=== PATIENT | female | born 1935 | race Caucasian/White ===

== ENCOUNTER 2018-03-16 08:59 | Inpatient (IN) | payer OTHER, MEDICAID, MEDICARE ==
[2018-03-16] VITALS (14 sets, daily range): BP systolic 133–176; BP diastolic 63–91; PULSE 85–108; RESP 15–38; TEMP 97.8–98.3; O2SAT 78–99
[~2018-03-16] VITALS: Ht 154.9 cm; Wt 85.2 kg
[2018-03-16] MEDS ORDERED: METF1000 PO (09:07)
[2018-03-16] MEDS ORDERED: NOVOLOGP2 SQ (09:11)
[2018-03-16] MEDS ORDERED: LEVEMIR SQ (09:11)
[2018-03-16] MEDS: RESP: ALBUTEROL 2.5 MG/IPRATROPIUM 0.5 MG NEB (SCH) INH ×2 (09:15→09:17)
[2018-03-16] MEDS ORDERED: methylPREDNISolone SOD SUCC 125 MG/2 ML VIAL IV PUSH ONE (09:15)
--- NOTE | 2018-03-16 09:20 | PD ---
HPI Chief Complaint: Respiratory Distress Time Seen by Provider: 09:06 Travel History International Travel<30 days: No Contact w/Intl Traveler<30days: No Traveled to known affect area: No History of Present Illness HPI 82yo F with PMH of COPD not on home O2 presents to the ED with c/o sob and cough since yesterday. Said she is a heavy cig smoker and smoke a pack a day. Denies any fever, chest pain, sob, n/v, abdominal pain, focal weakness or numbness. Pt is from [place] and visiting her friend. PFSH Past Medical History Diabetes: Yes Respiratory: Yes Social History Tobacco Use: Yes Allergies-Medications (Allergen,Severity, Reaction): Coded Allergies: Penicillins (Verified Allergy, Unknown, RASH, 03/16/18) Sulfa (Sulfonamide Antibiotics) (Verified Allergy, Unknown, HIVES, 03/16/18 ) Reported Meds & Prescriptions Reported Meds & Active Scripts Active Reported Novolog Inj (Insulin Aspart) 1,000 Unit/10 Ml Vial 3 Units SQ BID Levemir Inj (Insulin Detemir) 1,000 unit/ 10 ML Vial 30 Units SQ BID Do not mix with any other Insulin. Metformin (Metformin HCl) 1,000 Mg Tab 1,000 Mg PO BIDPC Review of Systems Except as stated in HPI: all other systems reviewed are Neg Physical Exam Narrative GENERAL: 82yo F in moderate distress. SKIN: Focused skin assessment warm/dry. HEAD: Atraumatic. Normocephalic. EYES: Pupils equal and round. No scleral icterus. No injection or drainage. ENT: No nasal bleeding or discharge. Mucous membranes pink and moist. NECK: Trachea midline. No JVD. CARDIOVASCULAR: Regular rate and rhythm. No murmur appreciated. RESPIRATORY: + accessory muscle use. Expiratory wheezing diffusely. GASTROINTESTINAL: Abdomen soft, non-tender, nondistended. Hepatic and splenic margins not palpable. MUSCULOSKELETAL: No obvious deformities. No clubbing. No cyanosis. No edema. NEUROLOGICAL: Awake and alert. No obvious cranial nerve deficits. Motor grossly within normal limits. Normal speech. PSYCHIATRIC: Appropriate mood and affect; insight and judgment normal. Data Data Last Documented VS Vital Signs Date Time Temp Pulse Resp B/P (MAP) Pulse Ox O2 Delivery O2 Flow Rate FiO2 03/16/18 10:06 97.8 101 30 150/67 (94) 97 Nasal Cannula 4.00 Orders Orders Complete Blood Count With Diff (03/16/18 09:06) Basic Metabolic Panel (Bmp) (03/16/18 09:06) B-Type Natriuretic Peptide (03/16/18 09:06) Act Partial Throm Time (Ptt) (03/16/18 09:06) Prothrombin Time / Inr (Pt) (03/16/18 09:06) Magnesium (Mg) (03/16/18 09:06) Troponin I (03/16/18 09:06) Influenzae A/B Antigen (03/16/18 09:06) Blood Culture (03/16/18 09:06) Electrocardiogram (03/16/18 09:06) Chest, Single Ap (03/16/18 09:06) Methylprednisolone So Succ Inj (Solumedr (03/16/18 09:15) Albuterol-Ipratropium Neb (Duoneb Neb) (03/16/18 09:15) Lactic Acid Sepsis Protocol (03/16/18 09:08) Arterial Blood Gas (Abg) (03/16/18 ) Admit To Inpatient (03/16/18 ) Vital Signs (Adult) Q4H (03/16/18 11:12) Activity Oob With Assistance (03/16/18 11:12) Diet Heart Healthy (03/16/18 Lunch) Sodium Chloride 0.9% Flush (Ns Flush) (03/16/18 11:15) Sodium Chloride 0.9% Flush (Ns Flush) (03/16/18 21:00) Acetaminophen (Tylenol) (03/16/18 11:15) Ondansetron Inj (Zofran Inj) (03/16/18 11:15) Comprehensive Metabolic Panel (03/17/18 06:00) Complete Blood Count With Diff (03/17/18 06:00) Resp Oxygen Major C Titrat 1-4 L (03/16/18 ) Pt Request For Service (03/16/18 11:12) Case Management Consult (03/16/18 11:12) Enoxaparin Inj (Lovenox Inj) (03/16/18 12:00) Scd Bilateral/Knee High KAYLEE.BID (03/16/18 11:12) Steve Bilateral/Knee High KAYLEE.QSHIFT (03/16/18 11:12) Naloxone Inj (Narcan Inj) (03/16/18 11:15) Docusate Sodium-Senna (Samantha-Colace) (03/16/18 21:00) Magnesium Hydroxide Liq (Milk Of Magnesi (03/16/18 11:15) Sennosides (Senokot) (03/16/18 11:15) Bisacodyl Supp (Dulcolax Supp) (03/16/18 11:15) Lactulose Liq (Lactulose Liq) (03/16/18 11:15) Inpatient Certification (03/16/18 ) Albuterol-Ipratropium Neb (Duoneb Neb) (03/16/18 12:00) Albuterol-Ipratropium Neb (Duoneb Neb) (03/16/18 11:15) Methylprednisolone So Succ Inj (Solumedr (03/16/18 15:00) Bedside Glucose KAYLEE.CSUGAR (03/16/18 11:17) Blood Glucose Goal (Criteria) (03/16/18 11:17) Hypoglycemia 70 Mg/Dl Or < (03/16/18 11:17) Notify Dr: Other (03/16/18 11:17) Dextrose 50% In [place] (Vial) Inj (D50w (Vi (03/16/18 11:30) Glucagon Inj (Glucagon Inj) (03/16/18 11:30) Consult Break Off Worker (03/16/18 ) Insulin Human Reg Supp Scale (Novolin R (03/16/18 12:00) Insulin Detemir Inj (Levemir Inj) (03/16/18 21:00) Admit Order (Ed Use Only) (03/16/18 11:19) Labs Laboratory Tests Test 03/16/18 09:02 03/16/18 10:27 White Blood Count 5.9 TH/MM3 Red Blood Count 4.82 MIL/MM3 Hemoglobin 13.7 GM/DL Hematocrit 42.2 % Mean Corpuscular Volume 87.4 FL Mean Corpuscular Hemoglobin 28.5 PG Mean Corpuscular Hemoglobin Concent 32.6 % Red Cell Distribution Width 15.5 % Platelet Count 155 TH/MM3 Mean Platelet Volume 8.4 FL Neutrophils (%) (Auto) 70.9 % Lymphocytes (%) (Auto) 16.7 % Monocytes (%) (Auto) 11.6 % Eosinophils (%) (Auto) 0.4 % Basophils (%) (Auto) 0.4 % Neutrophils # (Auto) 4.2 TH/MM3 Lymphocytes # (Auto) 1.0 TH/MM3 Monocytes # (Auto) 0.7 TH/MM3 Eosinophils # (Auto) 0.0 TH/MM3 Basophils # (Auto) 0.0 TH/MM3 CBC Comment DIFF FINAL Differential Comment Prothrombin Time 11.7 SEC Prothromb Time International Ratio 1.2 RATIO Activated Partial Thromboplast Time 23.8 SEC Blood Urea Nitrogen 21 MG/DL Creatinine 0.83 MG/DL Random Glucose 191 MG/DL Calcium Level 8.9 MG/DL Magnesium Level 1.7 MG/DL Sodium Level 140 MEQ/L Potassium Level 4.6 MEQ/L Chloride Level 104 MEQ/L Carbon Dioxide Level 29.5 MEQ/L Anion Gap 7 MEQ/L Estimat Glomerular Filtration Rate 66 ML/MIN Lactic Acid Level 1.8 mmol/L Troponin I LESS THAN 0.02 NG/ML Blood Gas Puncture Site LT RADIAL Blood Gas Patient Temperature 98.6 Blood Gas HCO3 28 mmol/L Blood Gas Base Excess 2.5 mmol/L Blood Gas Oxygen Saturation 90 % Arterial Blood pH 7.33 Arterial Blood Partial Pressure CO2 54 mmHg Arterial Blood Partial Pressure O2 70 mmHG Arterial Blood Oxygen Content 16.2 Vol % Arterial Blood Carboxyhemoglobin 1.5 % Arterial Blood Methemoglobin 0.9 % Blood Gas Hemoglobin 12.8 G/DL Oxygen Delivery Device NASAL CANNULA Blood Gas Liter Flow 2 L/M MDM Medical Decision Making Medical Screen Exam Complete: Yes Emergency Medical Condition: Yes Interpretation(s) EKG: Sinus tachycardia at 105bpm. Normal axis. No ST segment elevation or depression. Differential Diagnosis COPD exacerbation vs. pneumonia vs. ACS Narrative Course 82yo F with COPD here with sob since yesterday. Pt is tachypneic and hypoxic on arrival. O2 sat is 79% on RA and place on oxygen immediately. Oxygen improved to mid 80s on 2L NC and mid 90s on 4L NC. Labs reviewed, no leukocytosis. Lactic acid normal at 1.8. Troponin negative. ABG on 2L showed pO2 70 with O2 sat 90%. pCO2 is 54, likely chronic. pH of 7.33. Pt reevaluated after duonebs x3 and methylprednisolone and is feeling much better. Influenza negative. CXR negative. Pt's oxygen is at 90% on 2L so respiratory therapy place it back on 4L. Pt said she feels much better but is still wheezing and mildly tachypneic. At this time, do not think she needs BIPAP but she may if she remains tachypneic. Discussed with Dr. Carmona and accepted to her service. Critical Care Narrative Aggregate critical care time was 40 minutes. Time to perform other separately billable procedures was not included in the critical care time. My time did not include minutes spent treating any other patients simultaneously or on activities that did not directly contribute to the patient's treatment. The services I provided to this patient were to treat and/or prevent clinically significant deterioration that could result in: respiratory distress or . I provided critical care services requiring my management, as noted below: Chart data review, documentation time, medication orders and management, vital sign assessments/reviewing monitor data, ordering and reviewing lab tests, ordering and interpreting/reviewing x-rays and diagnostic studies, care of the patient and discussion of the patient with the admitting physicians. Diagnosis Primary Impression: COPD exacerbation Admitting Information Admitting Physician Requests: Galina Zaragoza DO Mar 16, 2018 09:20
[2018-03-16 09:48] LABS: AUTOMATED NEUTROPHIL # 4.2 TH/MM3 (1.8-7.7); BASOPHIL % 0.4 % (0.0-2.0); EOSINOPHIL % 0.4 % (0.0-4.0); HEMATOCRIT 42.2 % (35.0-46.0); HEMOGLOBIN 13.7 GM/DL (11.6-15.3); LYMPH % 16.7 % (9.0-44.0); MEAN CELL VOLUME 87.4 FL (80.0-100.0); MEAN CORPUSCULAR HEMOGLOBIN 28.5 PG (27.0-34.0); MEAN CORPUSCULAR HGB CONC 32.6 % (32.0-36.0); MEAN PLATELET VOLUME 8.4 FL (7.0-11.0); MONO % 11.6 % (0.0-8.0); MONOCYTE # 0.7 TH/MM3 (0-0.9); NEUT % 70.9 % (16.0-70.0); PLATELET COUNT 155 TH/MM3 (150-450); RED BLOOD COUNT 4.82 MIL/MM3 (4.00-5.30); RED CELL DISTRIBUTION WIDTH 15.5 % (11.6-17.2); WHITE BLOOD COUNT 5.9 TH/MM3 (4.0-11.0)
--- NOTE | 2018-03-16 09:51 | RADRPT ---
EXAM DATE/TIME: 03/16/2018 09:34 [facility] COMPARISON: No previous studies available for comparison. INDICATIONS : Shortness of breath. MEDICAL HISTORY : Emphysema. Carcinoma, breast. Diabetes. SURGICAL HISTORY : Right lumpectomy. ENCOUNTER: Initial ACUITY: 1 day PAIN SCORE: 0/10 LOCATION: Bilateral chest FINDINGS: A single view of the chest demonstrates the lungs to be symmetrically aerated without evidence of mas s, infiltrate or effusion. The cardiomediastinal contours are unremarkable. A mild to moderate scoli osis is noted with degenerative changes in the lower thoracic and upper lumbar spine. There are multi ple overlying electrocardiogram leads. Oxygen tubing is present as well. CONCLUSION: No acute disease. Jair Garcia MD on March 16, 2018 at 9:48 Board Certified Radiologist. This report was verified electronically.
[2018-03-16 10:05] LABS: TROPONIN I LESS THAN 0.02 NG/ML (0.02-0.05)
[2018-03-16 10:10] LABS: BICARBONATE 29.5 MEQ/L (21.0-32.0); BLOOD UREA NITROGEN 21 MG/DL (7-18); CALCIUM 8.9 MG/DL (8.5-10.1); CHLORIDE 104 MEQ/L (98-107); CREATININE 0.83 MG/DL (0.50-1.00); GLOMERULAR FILTRATION RATE 66 ML/MIN (>89); GLUCOSE,RANDOM 191 MG/DL (74-106); MAGNESIUM 1.7 MG/DL (1.5-2.5); SODIUM (NA) 140 MEQ/L (136-145)
[2018-03-16 10:19] LABS: INTERNATIONAL NORMALIZED RATIO 1.2 RATIO; PROTHROMBIN TIME - PATIENT 11.7 SEC (9.8-11.6)
--- NOTE | 2018-03-16 11:14 | HHI.HP ---
HPI Service [facility] Primary Care Physician Non-Staff Admission Diagnosis Diagnoses: Chief Complaint: Shortness of breath, wheezing Travel History International Travel<30 Days: No Contact w/Intl Traveler <30 Da: No Traveled to Known Affected Are: No History of Present Illness Patient is a very pleasant 82yo F with PMH of COPD not on home oxygen presents to the ED with c/o sob and cough since yesterday. Said she is a heavy cig smoker and smoke a pack a day. Denies any fever, chest pain, sob, n/v, abdominal pain, focal weakness or numbness. Patient is from [place] and visiting her friend. Says she never been hospitalized for COPD in the past. She is following with her doctors and is taking her medications. Does not have a pulmonology doctor. Denies chest pain or palpitations. No n/v/d/c. No urinary complaints. Review of Systems Except as stated in HPI: all other systems reviewed are Neg Past Family Social History Past Medical History COPD, diabetes mellitus Past Surgical History Right breast lumpectomy, hernia repair, right shoulder rotator cuff surgery Reported Medications Reported Meds & Active Scripts Active Reported Novolog Inj (Insulin Aspart) 1,000 Unit/10 Ml Vial 3 Units SQ BID Levemir Inj (Insulin Detemir) 1,000 unit/ 10 ML Vial 30 Units SQ BID Do not mix with any other Insulin. Metformin (Metformin HCl) 1,000 Mg Tab 1,000 Mg PO BIDPC Allergies: Coded Allergies: Penicillins (Verified Allergy, Unknown, RASH, 03/16/18) Sulfa (Sulfonamide Antibiotics) (Verified Allergy, Unknown, HIVES, 03/16/18 ) Family History Father with the diabetes and reactive cancer he at the age of 79 Mother stroke at the age of 74 Social History Tobacco use half a pack 1 pack per day Denies EtOH or illicit drug use Physical Exam Vital Signs Vital Signs Date Time Temp Pulse Resp B/P (MAP) Pulse Ox O2 Delivery O2 Flow Rate FiO2 03/16/18 10:06 97.8 101 30 150/67 (94) 97 Nasal Cannula 4.00 03/16/18 09:31 96 30 155/67 (96) 97 Nasal Cannula 4.00 03/16/18 09:18 97 Nasal Cannula 4.00 03/16/18 09:02 98.0 108 38 170/91 (117) 78 03/16/18 09:02 103 36 95 Nasal Cannula 4.00 Physical Exam GENERAL: This is a very pleasant 82-year-old female, well-nourished, well- developed patient, in no apparent distress. SKIN: No rashes, ecchymoses or lesions. Cool and dry. HEAD: Atraumatic. Normocephalic. No temporal or scalp tenderness. EYES: Pupils equal round and reactive. Extraocular motions intact. No scleral icterus. No injection or drainage. ENT: Nose without bleeding, purulent drainage or septal hematoma. Throat without erythema, tonsillar hypertrophy or exudate. Uvula midline. Airway patent. NECK: Trachea midline. No JVD or lymphadenopathy. Supple, nontender, no meningeal signs. CARDIOVASCULAR: Regular rate and rhythm without murmurs, gallops, or rubs. RESPIRATORY: Decreased breath sounds. +Scattered wheezing. + Shortness of breath. GASTROINTESTINAL: Abdomen soft, non-tender, nondistended. No hepato-splenomegaly , or palpable masses. No guarding. MUSCULOSKELETAL: Extremities without clubbing, cyanosis, or edema. No joint tenderness, effusion, or edema noted. No calf tenderness. Negative Homans sign bilaterally. NEUROLOGICAL: Awake and alert. Cranial nerves II through XII intact. Motor and sensory grossly within normal limits. Five out of 5 muscle strength in all muscle groups. Normal speech. Laboratory Laboratory Tests Test 03/16/18 09:02 03/16/18 10:27 White Blood Count 5.9 Red Blood Count 4.82 Hemoglobin 13.7 Hematocrit 42.2 Mean Corpuscular Volume 87.4 Mean Corpuscular Hemoglobin 28.5 Mean Corpuscular Hemoglobin Concent 32.6 Red Cell Distribution Width 15.5 Platelet Count 155 Mean Platelet Volume 8.4 Neutrophils (%) (Auto) 70.9 Lymphocytes (%) (Auto) 16.7 Monocytes (%) (Auto) 11.6 Eosinophils (%) (Auto) 0.4 Basophils (%) (Auto) 0.4 Neutrophils # (Auto) 4.2 Lymphocytes # (Auto) 1.0 Monocytes # (Auto) 0.7 Eosinophils # (Auto) 0.0 Basophils # (Auto) 0.0 CBC Comment DIFF FINAL Differential Comment Prothrombin Time 11.7 Prothromb Time International Ratio 1.2 Activated Partial Thromboplast Time 23.8 Blood Urea Nitrogen 21 Creatinine 0.83 Random Glucose 191 Calcium Level 8.9 Magnesium Level 1.7 Sodium Level 140 Potassium Level 4.6 Chloride Level 104 Carbon Dioxide Level 29.5 Anion Gap 7 Estimat Glomerular Filtration Rate 66 Lactic Acid Level 1.8 Troponin I LESS THAN 0.02 Blood Gas Puncture Site LT RADIAL Blood Gas Patient Temperature 98.6 Blood Gas HCO3 28 Blood Gas Base Excess 2.5 Blood Gas Oxygen Saturation 90 Arterial Blood pH 7.33 Arterial Blood Partial Pressure CO2 54 Arterial Blood Partial Pressure O2 70 Arterial Blood Oxygen Content 16.2 Arterial Blood Carboxyhemoglobin 1.5 Arterial Blood Methemoglobin 0.9 Blood Gas Hemoglobin 12.8 Oxygen Delivery Device NASAL CANNULA Blood Gas Liter Flow 2 Date/Time Source Procedure Growth Status 03/16/18 09:18 Blood Peripheral Aerobic Blood Culture Pending Received 03/16/18 09:18 Blood Peripheral Anaerobic Blood Culture Pending Received 03/16/18 09:55 Nasal Aspirate Influenza Types A,B Antigen (YESIKA) - Final NEGATIVE FOR FLU A AND B ANTIGEN.... Complete Result Diagram: 03/16/1890103/16/18901 Imaging Last Impressions Chest X-Ray 03/16/18905 Signed Impressions: Service Date/Time: Friday, March 16, 2018 09:34 - CONCLUSION: No acute disease. MD Cecille Bermudez VTE Risk Assessment Colerini VTE Risk Assessment: Mod/High Risk (score >= 2) Caprini Risk Assessment Model Point Value = 1 Point Value = 2 Point Value = 3 Point Value = 5 Age 41-60 Minor surgery BMI > 25 kg/m2 Swollen legs Varicose veins or History of unexplained or recurrent spontaneous Oral contraceptives or hormone replacement Sepsis (< 1 month) Serious lung disease, including pneumonia (< 1 month) Abnormal pulmonary function Acute myocardial infarction Congestive heart failure (< 1 month) History of inflammatory bowel disease Medical patient at bed rest Age 61-74 Arthroscopic surgery Major open surgery (> 45 min) Laparoscopic surgery (> 45 min) Malignancy Confined to bed (> 72 hours) Immobilizing plaster cast Central venous access Age >= 75 History of VTE Family history of VTE Factor V Leiden Prothrombin [id number] Lupus anticoagulant Anticardiolipin antibodies Elevated serum homocysteine Heparin-induced thrombocytopenia Other congenital or acquired thrombophilia Stroke (< 1 month) Elective arthroplasty Hip, pelvis, or leg fracture Acute spinal cord injury (< 1 month) Prophylaxis Regimen Total Risk Factor Score Risk Level Prophylaxis Regimen 0-1 Low Early ambulation 2 Moderate Order ONE of the following: *Sequential Compression Device (SCD) *Heparin 5000 units SQ BID 3-4 Higher Order ONE of the following medications: *Heparin 5000 units SQ TID *Enoxaparin/Lovenox 40 mg SQ daily (WT < 150 kg, CrCl > 30 mL/min) *Enoxaparin/Lovenox 30 mg SQ daily (WT < 150 kg, CrCl > 10-29 mL/min) *Enoxaparin/Lovenox 30 mg SQ BID (WT < 150 kg, CrCl > 30 mL/min) AND/OR *Sequential Compression Device (SCD) 5 or more Highest Order ONE of the following medications: *Heparin 5000 units SQ TID (Preferred with Epidurals) *Enoxaparin/Lovenox 40 mg SQ daily (WT < 150 kg, CrCl > 30 mL/min) *Enoxaparin/Lovenox 30 mg SQ daily (WT < 150 kg, CrCl > 10-29 mL/min) *Enoxaparin/Lovenox 30 mg SQ BID (WT < 150 kg, CrCl > 30 mL/min) AND *Sequential Compression Device (SCD) Assessment and Plan Problem List: (1) Insulin dependent diabetes mellitus ICD Code: E11.9 - Type 2 diabetes mellitus without complications; Z79.4 - alf (current) use of insulin (2) GERD (gastroesophageal reflux disease) ICD Code: K21.9 - Gastro-esophageal reflux disease without esophagitis (3) COPD exacerbation ICD Code: J44.1 - Chronic obstructive pulmonary disease with (acute) exacerbation Status: Acute Assessment and Plan Very pleasant 52-year-old female with COPD with exacerbation Hypoxia. Acute respiratory failure patient was dessatting at 78 % while on 2L ABG reviewed Duo nebs every 4 hours scheduled and every 2 hours as needed taper as tolerated. Receive Zometa on 125 mg IV 1 time. Continue Solu-Medrol 60 mg every 6 hours taper steroids as tolerated. Monitor oxygen saturation and titrate oxygen as needed. Oxygen supplement keep oxygen saturation more than 92% Will need PFT as outpatient Patient is also a history of breast cancer with lumpectomy. Ordered d-dimer to rule out DVT /PE. Positive d-dimer ordered CTA pulmonary to rule out PE. CTA reviewed and no PE. Ativan prn for withdrawal symptoms, patient is a smoker 1 PPD refusing nicotine patch at this time. Counselled extensively regarding tobacco use. Insulin-dependent diabetes mellitus. Restart home insulin Levemir 30 units twice daily, insulin sliding scale. Accu-Cheks. Monitor blood sugar and adjust insulin as needed DVT prophylaxis SCDs/teds/Lovenox SQ Discussed Condition With Patient, family at bedside, nurse, ED physician Dr. Espinosa Physician Certification 2 Midnight Certification Type: Admission for Inpatient Services Order for Inpatient Services The services are ordered in accordance with Medicare regulations or non- Medicare payer requirements, as applicable. In the case of services not specified as inpatient-only, they are appropriately provided as inpatient services in accordance with the 2-midnight benchmark. Estimated LOS (days): 3 days is the estimated time the patient will need to remain in the hospital, assuming treatment plan goals are met and no additional complications. Post-Hospital Plan: Home Linda Carmona MD Mar 16, 2018 11:14
[2018-03-16] MEDS ORDERED: MAGNESIUM HYDROXIDE SUSP 30 ML CUP PO PRN (11:15)
[2018-03-16] MEDS ORDERED: ACETAMINOPHEN 325 MG TAB PO PRN (11:15)
[2018-03-16] MEDS ORDERED: SODIUM CHLORIDE 0.9% FLUSH 10 ML FLUSH IV FLUSH PRN (11:15)
[2018-03-16] MEDS ORDERED: SENNOSIDES 8.6 MG TAB PO PRN (11:15)
[2018-03-16] MEDS ORDERED: RESP: ALBUTEROL 2.5 MG/IPRATROPIUM 0.5 MG NEB (PRN) NEB (11:15)
[2018-03-16] MEDS ORDERED: LACTULOSE SYRUP 20 GM/30 ML CUP PO PRN (11:15)
[2018-03-16] MEDS ORDERED: ONDANSETRON HCL 4 MG/2 ML VIAL IVP PRN (11:15)
[2018-03-16] MEDS ORDERED: BISACODYL 10 MG SUPP RECTAL PRN (11:15)
[2018-03-16] MEDS ORDERED: NALOXONE HCL 0.4 MG/ML AMP IV PUSH PRN (11:15)
[2018-03-16] MEDS ORDERED: DEXTROSE 50% IN WATER 50 ML VIAL(D50) IV PUSH PRN (11:30)
[2018-03-16] MEDS ORDERED: GLUCAGON 1 MG/ML VIAL OTHER PRN (11:30)
[2018-03-16] MEDS: ENOXAPARIN SODIUM 40 MG/0.4 ML SYRINGE SQ SCH (11:51)
[2018-03-16] MEDS: INSULIN NovoLIN REGULAR SUPPLEMENTAL SCALE SQ SCH ×3 (11:52→21:02)
[2018-03-16] MEDS: RESP: ALBUTEROL 2.5 MG/IPRATROPIUM 0.5 MG NEB (SCH) NEB ×3 (11:55→19:42)
[2018-03-16] MEDS: methylPREDNISolone SOD SUCC 40 MG/1 ML VIAL IV PUSH SCH ×2 (15:32→20:58)
--- NOTE | 2018-03-16 16:46 | EKG ---
Date Performed: 03/16/2018 Time Performed: 09:00:27 PTAGE: 82 years EKG: SINUS TACHYCARDIA ABNORMAL RHYTHM ECG INTERPRETATION BASED ON A DEFAULT AGE OF 40 YEARS NO PREVIOUS TRACING DOCTOR: Geovanny Rivas Interpretating Date/Time 03/16/2018 16:47:20
[2018-03-16] MEDS ORDERED: IOHEXOL 350 MG/ML 10 ML VIAL (for RAD DIAG) IVCONTRAST ONE (17:36)
--- NOTE | 2018-03-16 18:03 | RADRPT ---
EXAM DATE/TIME: 03/16/2018 17:37 [facility] COMPARISON: No previous studies available for comparison. INDICATIONS : Elevated d-dimer; rule out pulmonary embolus. IV CONTRAST: 71 cc Omnipaque 350 (iohexol) IV RADIATION DOSE: 21.40 CTDIvol (mGy) MEDICAL HISTORY : Carcinoma, breast. SURGICAL HISTORY : nodule removed ENCOUNTER: Initial ACUITY: 1 day PAIN SCALE: 3/10 LOCATION: chest TECHNIQUE: Volumetric scanning of the chest was performed using a pulmonary embolism protocol MIP images were re constructed. Using automated exposure control and adjustment of the mA and/or kV according to patien t size, radiation dose was kept as low as reasonably achievable to obtain optimal diagnostic quality images. DICOM format image data is available electronically for review and comparison. Follow-up recommendations for detected pulmonary nodules are based at a minimum on nodule size and pa tient risk factors according to Fleischner Society Guidelines. FINDINGS: No filling defects identified to suggest pulmonary embolic disease. There is no pleural or pericardia l effusion. Mild coronary calcification. Minimal scattered scarring in the lungs. No adenopathy. No acute findings in the upper abdomen. Probable 3.4 cm cyst in the liver incompletely evaluated. Spl enic granulomata present. CONCLUSION: 1. No filling defects to suggest pulmonary embolic disease. No effusions or adenopathy. Diego Slater MD on March 16, 2018 at 17:56 Board Certified Radiologist. This report was verified electronically.
[2018-03-16] MEDS ORDERED: LORazepam 0.5 MG TAB PO PRN (18:30)
[2018-03-16] MEDS: SODIUM CHLORIDE 0.9% FLUSH 10 ML FLUSH IV FLUSH SCH (20:57)
[2018-03-16] MEDS: DOCUSATE SODIUM 50 MG/SENNA 8.6 MG TAB PO SCH (20:58)
[2018-03-16] MEDS: INSULIN DETEMIR 100 UNITS/ML VIAL SQ SCH (20:59)
[2018-03-17] VITALS (11 sets, daily range): BP systolic 113–162; BP diastolic 57–75; PULSE 79–110; RESP 19–20; TEMP 97.8–98.9; O2SAT 93–97
[2018-03-17] MEDS: methylPREDNISolone SOD SUCC 40 MG/1 ML VIAL IV PUSH SCH ×4 (03:20→21:39)
[2018-03-17 07:15] LABS: AUTOMATED NEUTROPHIL # 9.8 TH/MM3 (1.8-7.7); BASOPHIL % 0.2 % (0.0-2.0); HEMATOCRIT 38.3 % (35.0-46.0); HEMOGLOBIN 12.9 GM/DL (11.6-15.3); LYMPH % 6.2 % (9.0-44.0); LYMPHOCYTE # 0.7 TH/MM3 (1.0-4.8); MEAN CELL VOLUME 86.9 FL (80.0-100.0); MEAN CORPUSCULAR HEMOGLOBIN 29.2 PG (27.0-34.0); MEAN CORPUSCULAR HGB CONC 33.6 % (32.0-36.0); MEAN PLATELET VOLUME 8.8 FL (7.0-11.0); MONO % 4.5 % (0.0-8.0); MONOCYTE # 0.5 TH/MM3 (0-0.9); NEUT % 89.1 % (16.0-70.0); PLATELET COUNT 155 TH/MM3 (150-450); RED BLOOD COUNT 4.41 MIL/MM3 (4.00-5.30); RED CELL DISTRIBUTION WIDTH 15.2 % (11.6-17.2)
[2018-03-17 07:38] LABS: ALBUMIN 3.2 GM/DL (3.4-5.0); AST (GOT) 17 U/L (15-37); BICARBONATE 27.5 MEQ/L (21.0-32.0); BLOOD UREA NITROGEN 26 MG/DL (7-18); CHLORIDE 102 MEQ/L (98-107); CREATININE 0.79 MG/DL (0.50-1.00); GLOMERULAR FILTRATION RATE 70 ML/MIN (>89); GLUCOSE,RANDOM 236 MG/DL (74-106); SODIUM (NA) 137 MEQ/L (136-145)
[2018-03-17 07:40] LABS: ALT (GPT) 21 U/L (10-53)
[2018-03-17 07:42] LABS: ALKALINE PHOSPHATASE 79 U/L (45-117); TOTAL BILIRUBIN ADULT 0.3 MG/DL (0.2-1.0); TOTAL PROTEIN 8.5 GM/DL (6.4-8.2)
[2018-03-17] MEDS: DOCUSATE SODIUM 50 MG/SENNA 8.6 MG TAB PO SCH ×2 (08:13→21:00)
[2018-03-17] MEDS: INSULIN DETEMIR 100 UNITS/ML VIAL SQ SCH ×2 (08:14→21:40)
[2018-03-17] MEDS: SODIUM CHLORIDE 0.9% FLUSH 10 ML FLUSH IV FLUSH SCH ×2 (08:20→21:42)
--- NOTE | 2018-03-17 08:20 | HHI.PR ---
Subjective Remarks Pt seen and examined. VS reviewed. Requiring 3 L supplemental O2. Patient reports her breathing is mildly better than yesterday but she states she has not really been ambulatory. She denies chest pain, abdominal pain, nausea, vomiting. Her appetite is good. She states she has a dry cough and feels like she needs to clear mucus from her chest. I spoke with her daughter on the phone who states that the patient has been smoking significantly more in the past couple months. She follows with a primary care doctor who has prescribed her inhalers for COPD but the patient refuses to take them. She states she does not believe her mother acknowledges the severity of her lung disease. The patient states she smokes a pack per day but wants to quit. At this time she denies A nicotine patch. Objective Vital Signs Date Time Temp Pulse Resp B/P (MAP) Pulse Ox O2 Delivery O2 Flow Rate FiO2 03/17/18 04:00 98.0 90 20 160/70 (100) 97 03/17/18 03:42 79 03/17/18 00:00 97.8 108 20 152/71 (98) 94 03/16/18 23:40 89 03/16/18 20:00 98.0 102 20 149/67 (94) 95 03/16/18 19:47 96 03/16/18 19:44 96 Nasal Cannula 3.00 03/16/18 18:25 99 Nasal Cannula 4.00 03/16/18 16:00 98.1 99 19 154/76 (102) 95 03/16/18 15:55 98.0 98 22 133/81 (98) 97 Nasal Cannula 4.00 03/16/18 15:18 98.3 85 15 176/64 (101) 99 Nasal Cannula 2.00 03/16/18 13:48 98.3 106 25 159/66 (97) 95 Nasal Cannula 03/16/18 11:46 98.0 101 24 151/63 (92) 95 Nasal Cannula 4.00 03/16/18 10:06 97.8 101 30 150/67 (94) 97 Nasal Cannula 4.00 03/16/18 09:31 96 30 155/67 (96) 97 Nasal Cannula 4.00 03/16/18 09:18 97 Nasal Cannula 4.00 03/16/18 09:02 98.0 108 38 170/91 (117) 78 03/16/18 09:02 103 36 95 Nasal Cannula 4.00 I/O 03/16/18 03/16/18 03/16/18 03/17/18 03/17/18 03/17/18 07:00 15:00 23:00 07:00 15:00 23:00 Intake Total 300 ml 600 ml Balance 300 ml 600 ml Intake Oral 300 ml 600 ml # Voids 4 # Bowel Movements 0 Result Diagram: 03/17/18 0620 03/17/18 0620 Imaging Chest X-Ray 03/16/18 0906 Signed Impressions: Service Date/Time: Friday, March 16, 2018 09:34 - CONCLUSION: No acute disease. Jair Garcia MD CT Angiography 03/16/18 0000 Signed Impressions: Service Date/Time: Friday, March 16, 2018 17:37 - CONCLUSION: 1. No filling defects to suggest pulmonary embolic disease. No effusions or adenopathy. Diego Slater MD Objective Remarks GENERAL: Pleasant, obese Nepalese female resting in bed in NAD. SKIN: Warm and dry. HEENT: AT/NC. Pupils equal and round. MMM. HEART: RRR no m/r/g. LUNGS: Diminished breath sounds with expiratory wheezing. ABDOMEN: +BS, soft, NT, ND. EXTREMITIES: No LE edema. Diminished but palpable pedal pulses. NEURO: Awake and alert. Nonfocal. PSYCH: Appropriate mood and affect. A/P Assessment and Plan 82 year old [place]alese female with COPD, IDDM, tobacco abuse, and history of breast cancer admitted on 03/16 for acute COPD exacerbation. 1. COPD exacerbation - Desatted to 78% on room air in the ED - Maintaining adequate sats on 2-4 L NC - DuoNeb Q4H scheduled - SoluMedrol 40 mg IV Q6H - White cell count bumped from 5.9 to 11 likely secondary to steroid demargination but added Levaquin for coverage of exacerbation since severe enough to require hospitalization - Counseled extensively on the need to be compliant with maintenance inhalers and the absolute need to stop smoking 2. Hypoxia - ABG on admission: pH 7.33, PCO2 54, PO2 70, HCO3 28 - Supplemental O2 PRN - D-dimer elevated given hypoxia and h/o breast cancer but CTA negative for embolism - May need walk test prior to discharge if still requiring O2 3. Insulin dependent DM - Levemir 30 units BID - SSI per protocol 4. Tobacco abuse - Refusing nicotine patch - Ativan PRN withdraw symptoms - Counseled extensively on cessation DVT prophylaxis: SCDs/teds/Lovenox SQ Discharge Planning Anticipate D/C in a couple days if patient continues to improve Hillary Herrera MD Mar 17, 2018 08:20
[2018-03-17] MEDS: INSULIN NovoLIN REGULAR SUPPLEMENTAL SCALE SQ SCH ×4 (08:21→21:41)
[2018-03-17] MEDS: LEVOFLOXACIN 500 MG TAB PO SCH (08:28)
[2018-03-17] MEDS: RESP: ALBUTEROL 2.5 MG/IPRATROPIUM 0.5 MG NEB (SCH) NEB ×4 (09:00→20:13)
[2018-03-17] MEDS ORDERED: guaiFENesin E.R. 600 MG TAB PO ONE (10:30)
[2018-03-17] MEDS: ENOXAPARIN SODIUM 40 MG/0.4 ML SYRINGE SQ SCH (11:39)
[2018-03-17] MEDS: guaiFENesin E.R. 600 MG TAB PO SCH (21:39)
[2018-03-18] VITALS (14 sets, daily range): BP systolic 119–155; BP diastolic 62–78; PULSE 80–104; RESP 17–60; TEMP 97.7–98.7; O2SAT 94–97
[2018-03-18] MEDS: methylPREDNISolone SOD SUCC 40 MG/1 ML VIAL IV PUSH SCH ×3 (03:14→20:57)
[2018-03-18] MEDS: SODIUM CHLORIDE 0.9% FLUSH 10 ML FLUSH IV FLUSH SCH ×2 (03:15→20:58)
[2018-03-18 05:01] LABS: AUTOMATED NEUTROPHIL # 11.8 TH/MM3 (1.8-7.7); BASOPHIL % 0.2 % (0.0-2.0); HEMATOCRIT 36.8 % (35.0-46.0); HEMOGLOBIN 12.1 GM/DL (11.6-15.3); LYMPH % 4.7 % (9.0-44.0); LYMPHOCYTE # 0.6 TH/MM3 (1.0-4.8); MEAN CELL VOLUME 85.6 FL (80.0-100.0); MEAN CORPUSCULAR HEMOGLOBIN 28.2 PG (27.0-34.0); MEAN PLATELET VOLUME 8.7 FL (7.0-11.0); MONO % 5.9 % (0.0-8.0); MONOCYTE # 0.8 TH/MM3 (0-0.9); NEUT % 89.2 % (16.0-70.0); PLATELET COUNT 169 TH/MM3 (150-450); RED CELL DISTRIBUTION WIDTH 15.2 % (11.6-17.2); WHITE BLOOD COUNT 13.2 TH/MM3 (4.0-11.0)
[2018-03-18 05:34] LABS: BICARBONATE 28.7 MEQ/L (21.0-32.0); CREATININE 0.79 MG/DL (0.50-1.00)
[2018-03-18] MEDS: RESP: ALBUTEROL 2.5 MG/IPRATROPIUM 0.5 MG NEB (SCH) NEB ×3 (08:24→22:35)
[2018-03-18] MEDS: INSULIN DETEMIR 100 UNITS/ML VIAL SQ SCH ×2 (09:00→20:57)
[2018-03-18] MEDS: DOCUSATE SODIUM 50 MG/SENNA 8.6 MG TAB PO SCH ×2 (09:00→21:00)
[2018-03-18] MEDS: LEVOFLOXACIN 500 MG TAB PO SCH (09:18)
[2018-03-18] MEDS: INSULIN NovoLIN REGULAR SUPPLEMENTAL SCALE SQ SCH ×4 (09:18→20:58)
[2018-03-18] MEDS: guaiFENesin E.R. 600 MG TAB PO SCH ×2 (09:18→20:57)
--- NOTE | 2018-03-18 09:25 | HHI.PR ---
Subjective Remarks Pt seen and examined. VS reviewed. Requiring 3 L supplemental O2. Reports continued improvements in her breathing but still SOB with exertional. Spoke with patient's daughter again on the phone today who reports her exertional dyspnea has been longstanding and she will "hernandez and puff 10 feet to go outside and smoker her cigarettes." Patient reports she is feeling better and denies CP , abdominal pain, N/V. She is tolerating PO. Objective Vital Signs Date Time Temp Pulse Resp B/P (MAP) Pulse Ox O2 Delivery O2 Flow Rate FiO2 03/18/18 08:24 96 3.00 03/18/18 08:07 98.0 80 19 138/66 (90) 97 03/18/18 04:00 98.2 81 20 128/62 (84) 97 03/18/18 03:41 80 03/18/18 00:00 97.7 81 20 134/78 (96) 97 03/17/18 23:42 84 03/17/18 20:18 95 Nasal Cannula 3.00 03/17/18 20:00 98.6 104 20 149/70 (96) 94 03/17/18 19:43 110 03/17/18 16:00 98 03/17/18 16:00 98.9 101 20 123/57 (79) 95 03/17/18 12:00 98.1 105 19 113/58 (76) 96 03/17/18 12:00 105 I/O 03/17/18 03/17/18 03/17/18 03/18/18 03/18/18 03/18/18 07:00 15:00 23:00 07:00 15:00 23:00 Intake Total 600 ml 680 ml 380 ml Output Total 500 ml Balance 600 ml 180 ml 380 ml Intake Oral 600 ml 680 ml 380 ml Output Urine Total 500 ml # Voids 4 3 # Bowel Movements 0 1 Result Diagram: 03/18/18 0330 03/18/18 0330 Objective Remarks GENERAL: Pleasant, obese [place]ian female sitting up in bed eating breakfast. SKIN: Warm and dry. HEENT: AT/NC. Pupils equal and round. MMM. HEART: RRR no m/r/g. LUNGS: Diminished breath sounds with expiratory wheezing and prolonged expiratory phase. Improved aeration though from yesterday. ABDOMEN: +BS, soft, NT, ND. EXTREMITIES: No LE edema. Diminished but palpable pedal pulses. NEURO: Awake and alert. Nonfocal. PSYCH: Appropriate mood and affect. A/P Assessment and Plan 82 year old [place]ian female with COPD, IDDM, tobacco abuse, and history of breast cancer admitted on 03/16 for acute COPD exacerbation. 1. COPD exacerbation - Desatted to 78% on room air in the ED - Maintaining adequate sats on 3 L NC - DuoNeb Q4H scheduled - Decrease SoluMedrol to 40 IV Q12 and plan to change to PO tomorrow - Start on Symbicort and provide Rx on discharge as well as albuterol rescue inhaler - White cell count bumped from 5.9 to 11 likely secondary to steroid demargination but added Levaquin for coverage of exacerbation since severe enough to require hospitalization - Counseled extensively on the need to be compliant with maintenance inhalers and the absolute need to stop smoking 2. Hypoxia - ABG on admission: pH 7.33, PCO2 54, PO2 70, HCO3 28 - Supplemental O2 PRN - D-dimer elevated given hypoxia and h/o breast cancer but CTA negative for embolism - Respiratory walk test since patient anticipated to be discharged tomorrow 3. Insulin dependent DM - SSI per protocol - Blood sugars have been elevated in 200-400 range, likely secondary to steroid use - Change to diabetic diet - Increase Levemir to 35 units BID 4. Tobacco abuse - Refusing nicotine patch - Ativan PRN withdraw symptoms - Counseled extensively on cessation DVT prophylaxis: SCDs/teds/Lovenox SQ Discharge Planning Anticipate D/C tomorrow Hillary Herrera MD Mar 18, 2018 09:25
--- NOTE | 2018-03-18 09:25 | HHI.FF ---
Face to Face Verification Diagnosis: (1) Muscular deconditioning (2) COPD exacerbation (3) Insulin dependent diabetes mellitus Physical Therapy Order: Evaluate and Treat, Improve ambulation, Strength and gait training I have seen patient Wendy Boone on 03/18/18. My clinical findings support the need for the requested home health care services because: Patient has SOB Deconditioned w/ increased weakness High risk of falls I certify that my clinical findings support that this patient is homebound because: Hx COPD- exertion dyspnea/weakness Unsteady gait/balance Hillary Herrera MD Mar 18, 2018 09:25
[2018-03-18] MEDS: ENOXAPARIN SODIUM 40 MG/0.4 ML SYRINGE SQ SCH (12:00)
[2018-03-18] MEDS ORDERED: NITROGLYCERIN 0.4 MG SL 25 TABS/BTL SL ONE ×2 (13:32→13:45)
[2018-03-18] MEDS ORDERED: METOPROLOL TARTRATE 5 MG/5 ML VIAL IV PUSH STA (13:42)
[2018-03-18] MEDS ORDERED: methylPREDNISolone SOD SUCC 125 MG/2 ML VIAL IV PUSH STA (13:44)
[2018-03-18 14:50] LABS: BLOOD UREA NITROGEN 35 MG/DL (7-18); CALCIUM 8.9 MG/DL (8.5-10.1); CHLORIDE 100 MEQ/L (98-107); CREATININE 0.99 MG/DL (0.50-1.00); GLOMERULAR FILTRATION RATE 54 ML/MIN (>89); GLUCOSE,RANDOM 354 MG/DL (74-106); SODIUM (NA) 136 MEQ/L (136-145)
--- NOTE | 2018-03-18 18:20 | MB ---
cc: Aram Abreu MD DATE: 03/18/2018 REASON FOR CONSULTATION: Chest pain, atrial fibrillation. HISTORY OF PRESENT ILLNESS: The patient is a very pleasant 82-year-old white female with a history of diabetes, COPD, right breast cancer, who was in her usual state of health up until about 2 days ago when she began to experience increasing shortness of breath. She was admitted for possible COPD exacerbation. Today at about 1:30 p.m., she developed an episode of sharp substernal chest pain associated with shortness of breath without nausea or diaphoresis. She believes the chest discomfort lasted about 10 minutes at most. At the same time, she was in atrial fibrillation with a rapid ventricular response. The patient denies palpitations, dizziness, syncope, near syncope, pedal edema, paroxysmal nocturnal dyspnea. She reports cardiac catheterization 6 years ago in [place], which was normal. Since coming into the hospital, her dyspnea has improved. PAST MEDICAL HISTORY: 1. COPD. 2. Diabetes. 3. Right breast cancer, status post lumpectomy, radiation therapy, hormonal therapy. PAST SURGICAL HISTORY: 1. Right breast lumpectomy. 2. Hernia repair. 3. Right rotator cuff repair. CURRENT CARDIAC MEDICATIONS: Carvedilol 6.25 mg p.o. q. 12 hours, Lovenox 40 mg subcutaneously q. 24 hours. ALLERGIES: PENICILLIN, SULFA. FAMILY HISTORY: Noncontributory. SOCIAL HISTORY: The patient smokes about a pack of cigarettes per day. She denies alcohol abuse. REVIEW OF SYSTEMS: As in the history of present illness, otherwise negative or noncontributory. She also denies headache, unilateral weakness or numbness, abdominal pain, melena, dyspepsia, bright red blood per rectum, recent flu symptoms. PHYSICAL EXAMINATION: VITAL SIGNS: Her blood pressure 138/70 with a pulse of 95, respirations 20. GENERAL: She is a well-developed, well-nourished white female, in no acute distress. NECK: Jugular venous pressure is normal. Carotid pulses are 2+ bilaterally and without bruits. CHEST: Reveals diminished breath sounds diffusely. There are no definite rales. CARDIAC: She has a regular rhythm and rate without S3, S4, or murmur. ABDOMEN: She has a soft, nontender abdomen. Bowel sounds are present. There is no definite hepatosplenomegaly. EXTREMITIES: Reveals no clubbing, cyanosis or edema. DIAGNOSTIC DATA: EKG from today shows atrial fibrillation with a rapid ventricular response, inferior and lateral ST abnormality, consider ischemia. Chest x-ray shows no acute disease. LABORATORY DATA: Includes WBC 13.2, hemoglobin 12.1, platelets 169. Potassium 4.5, BUN 35, creatinine 0.99. CK 114, troponin less than 0.02. IMPRESSION: Paroxysmal atrial fibrillation with a rapid ventricular response, single episode of atypical chest pain in this 82-year-old white female with a history of diabetes, COPD, breast cancer. At this time, she is back in sinus rhythm. The patient denies any other recent chest pains. She reports a normal cardiac catheterization about 6 years ago at the age of 76. Initial cardiac enzymes are negative for myocardial infarction. With respect to her thromboembolic risk, it is at least moderately elevated with her advanced age, diabetes. RECOMMENDATIONS: 1. Start amiodarone to help maintain sinus rhythm. 2. After discussion with her daughter, who is a nurse, they would prefer anticoagulation therapy with Pradaxa. 3. Check a 2-D echo to assess her left ventricular function. 4. Continue beta-andre therapy. MD KENISHA Jenkins/KAYLA , 04:41 PM , 06:18 PM MTDMarilyn
--- NOTE | 2018-03-18 18:50 | HHI.PR ---
Subjective Remarks not seen Objective Vitals Vital Signs Date Time Temp Pulse Resp B/P (MAP) Pulse Ox O2 Delivery O2 Flow Rate FiO2 03/18/18 16:00 95 03/18/18 16:00 98.4 95 43 138/71 (93) 96 03/18/18 15:00 104 60 138/78 (98) 97 03/18/18 14:56 98.4 102 22 131/75 (93) 97 03/18/18 12:22 98.1 91 17 155/64 (94) 94 03/18/18 11:33 3.00 03/18/18 08:24 96 3.00 03/18/18 08:13 86 03/18/18 08:07 98.0 80 19 138/66 (90) 97 03/18/18 04:00 98.2 81 20 128/62 (84) 97 03/18/18 03:41 80 03/18/18 00:00 97.7 81 20 134/78 (96) 97 03/17/18 23:42 84 03/17/18 20:18 95 Nasal Cannula 3.00 03/17/18 20:00 98.6 104 20 149/70 (96) 94 03/17/18 19:43 110 I/O 03/17/18 03/17/18 03/17/18 03/18/18 03/18/18 03/18/18 06:59 14:59 22:59 06:59 14:59 22:59 Intake Total 600 ml 680 ml 380 ml Output Total 500 ml Balance 600 ml 180 ml 380 ml Intake Oral 600 ml 680 ml 380 ml Output Urine Total 500 ml # Voids 4 3 # Bowel Movements 0 1 Result Diagram: 03/18/18 0330 03/18/18 1407 Imaging Last Impressions Chest X-Ray 03/16/18 0906 Signed Impressions: Service Date/Time: Friday, March 16, 2018 09:34 - CONCLUSION: No acute disease. Jair Garcia MD CT Angiography 03/16/18 0000 Signed Impressions: Service Date/Time: Friday, March 16, 2018 17:37 - CONCLUSION: 1. No filling defects to suggest pulmonary embolic disease. No effusions or adenopathy. Diego Slater MD Objective Remarks GENERAL: Pleasant, obese [place]an female sitting up in bed eating breakfast. SKIN: Warm and dry. HEENT: AT/NC. Pupils equal and round. MMM. HEART: RRR no m/r/g. LUNGS: Diminished breath sounds with expiratory wheezing and prolonged expiratory phase. Improved aeration though from yesterday. ABDOMEN: +BS, soft, NT, ND. EXTREMITIES: No LE edema. Diminished but palpable pedal pulses. NEURO: Awake and alert. Nonfocal. PSYCH: Appropriate mood and affect. Procedures none A/P Problem List: (1) Insulin dependent diabetes mellitus ICD Code: E11.9 - Type 2 diabetes mellitus without complications; Z79.4 - [facility] (current) use of insulin (2) GERD (gastroesophageal reflux disease) ICD Code: K21.9 - Gastro-esophageal reflux disease without esophagitis (3) COPD exacerbation ICD Code: J44.1 - Chronic obstructive pulmonary disease with (acute) exacerbation Status: Acute Assessment and Plan 82 year old [place] female with COPD, IDDM, tobacco abuse, and history of breast cancer admitted on 03/16 for acute COPD exacerbation. 1. COPD exacerbation - Desatted to 78% on room air in the ED - Maintaining adequate sats on 3 L NC - DuoNeb Q4H scheduled - Decrease SoluMedrol to 40 IV Q12 and plan to change to PO tomorrow - Start on Symbicort and provide Rx on discharge as well as albuterol rescue inhaler - White cell count bumped from 5.9 to 11 likely secondary to steroid demargination but added Levaquin for coverage of exacerbation since severe enough to require hospitalization - Counseled extensively on the need to be compliant with maintenance inhalers and the absolute need to stop smoking 2. Hypoxia - ABG on admission: pH 7.33, PCO2 54, PO2 70, HCO3 28 - Supplemental O2 PRN - D-dimer elevated given hypoxia and h/o breast cancer but CTA negative for embolism - Respiratory walk test since patient anticipated to be discharged tomorrow 3. Insulin dependent DM - SSI per protocol - Blood sugars have been elevated in 200-400 range, likely secondary to steroid use - Change to diabetic diet - Increase Levemir to 35 units BID 4. Tobacco abuse - Refusing nicotine patch - Ativan PRN withdraw symptoms - Counseled extensively on cessation 5. Fib with RVR 6. GPC bacteremia DVT prophylaxis: SCDs/teds/Lovenox SQ Dustin Macias MD Mar 18, 2018 18:50
[2018-03-18] MEDS: CARVEDILOL 6.25 MG TAB PO SCH (20:57)
[2018-03-18] MEDS: AMIODARONE 200 MG TAB PO SCH (20:57)
[2018-03-18] MEDS: BUDESONIDE-FORMOTEROL 80/4.5 MCG INHALER INH SCH (20:58)
--- NOTE | 2018-03-18 22:00 | EKG ---
Date Performed: 03/18/2018 Time Performed: 13:36:56 PTAGE: 82 years EKG: Atrial fibrillation with uncontrolled ventricular response. Extensive ST-T changes may be d ue to myocardial ischemia Abnormal ECG PREVIOUS TRACING : 03/16/2018 09.00 Compared to previous tracing, atrial fibrillation has repla quinton Sinus rhythm , heart rate has increased, inferior and lateral ST changes are now present. DOCTOR: Aram Abreu Interpretating Date/Time 03/18/2018 21:58:49
[2018-03-18] MEDS: DABIGATRAN ETEXILATE 150 MG CAP PO SCH (22:46)
[2018-03-19] VITALS (17 sets, daily range): BP systolic 126–154; BP diastolic 62–104; PULSE 62–88; RESP 19–52; TEMP 97.6–98.9; O2SAT 87–98
[2018-03-19 05:11] LABS: AUTOMATED NEUTROPHIL # 9.1 TH/MM3 (1.8-7.7); BASOPHIL % 0.2 % (0.0-2.0); HEMATOCRIT 37.2 % (35.0-46.0); HEMOGLOBIN 12.3 GM/DL (11.6-15.3); LYMPH % 7.3 % (9.0-44.0); LYMPHOCYTE # 0.8 TH/MM3 (1.0-4.8); MEAN CELL VOLUME 86.7 FL (80.0-100.0); MEAN CORPUSCULAR HEMOGLOBIN 28.6 PG (27.0-34.0); MEAN PLATELET VOLUME 8.7 FL (7.0-11.0); MONO % 7.5 % (0.0-8.0); MONOCYTE # 0.8 TH/MM3 (0-0.9); PLATELET COUNT 154 TH/MM3 (150-450); RED BLOOD COUNT 4.29 MIL/MM3 (4.00-5.30); RED CELL DISTRIBUTION WIDTH 15.4 % (11.6-17.2); WHITE BLOOD COUNT 10.7 TH/MM3 (4.0-11.0)
[2018-03-19 05:22] LABS: CALCIUM 8.6 MG/DL (8.5-10.1); CREATININE 0.78 MG/DL (0.50-1.00)
--- NOTE | 2018-03-19 07:19 | PD.CARD.PN ---
Subjective Subjective Remarks No further CP. No dizziness, palpitations. Dyspnea "much better". Objective Medications Item Value Date Time Carvedilol 6.25 mg 03/18/182099 (Coreg) Q12HR/PO 03/18/182056 Amiodarone HCl 400 mg 03/18/182099 (Cordarone) Q12HR/PO 03/18/182056 Dabigatran 150 mg 03/18/182099 (Pradaxa) BID/PO 03/18/182245 Current Medications Medications (Trade) Dose Ordered Sig/Merlin Route Start Time Stop Time Status Last Admin (NS Flush) 2 ml UNSCH PRN IV FLUSH 03/16/18 11:15 03/17/18 03:21 (NS Flush) 2 ml BID IV FLUSH 03/16/18 21:00 03/18/18 20:58 (Tylenol) 650 mg Q4H PRN PO 03/16/18 11:15 03/17/18 08:13 (Zofran Inj) 4 mg Q6H PRN IVP 03/16/18 11:15 (Narcan Inj) 0.4 mg UNSCH PRN IV PUSH 03/16/18 11:15 (Samantha-Colace) 1 tab BID PO 03/16/18 21:00 (Milk Of Magnesia Liq) 30 ml Q12H PRN PO 03/16/18 11:15 (Senokot) 17.2 mg Q12H PRN PO 03/16/18 11:15 (Dulcolax Supp) 10 mg DAILY PRN RECTAL 03/16/18 11:15 (Lactulose Liq) 30 ml DAILY PRN PO 03/16/18 11:15 (Duoneb Neb) 1 ampule Q4HR WHILE AWAKE NEB NEB 03/16/18 12:00 03/18/18 22:35 (Duoneb Neb) 1 ampule Q2HR NEB PRN NEB 03/16/18 11:15 (D50w (Vial) Inj) 50 ml UNSCH PRN IV PUSH 03/16/18 11:30 (Glucagon Inj) 1 mg UNSCH PRN OTHER 03/16/18 11:30 (NovoLIN R SUPPLEMENTAL SCALE) 1 ACHS SLIDING SCALE SQ 03/16/18 12:00 03/18/18 20:58 (Ativan) 0.5 mg Q12H PRN PO 03/16/18 18:30 (Levaquin) 500 mg DAILY PO 03/17/18 09:00 03/23/18 08:59 03/18/18 09:18 (Mucinex Er) 600 mg BID PO 03/17/18 21:00 03/18/18 20:57 (SoluMEDROL INJ) 40 mg Q12HR IV PUSH 03/18/18 21:00 03/18/18 20:57 (Levemir Inj) 35 units BID SQ 03/18/18 21:00 03/18/18 20:57 (Symbicort 80-4.5 Mcg Inh) 1 puff Q12HR INH 03/18/18 21:00 03/18/18 20:58 (Coreg) 6.25 mg Q12HR PO 03/18/18 21:00 03/18/18 20:57 (Cordarone) 400 mg Q12HR PO 03/18/18 21:00 03/18/18 20:57 (Pradaxa) 150 mg BID PO 03/18/18 21:00 03/18/18 22:46 (Glucophage) 1,000 mg BIDPC PO 03/18/18 19:00 Vital Signs / I&O Vital Signs Date Time Temp Pulse Resp B/P (MAP) Pulse Ox O2 Delivery O2 Flow Rate FiO2 03/19/18 06:00 64 03/19/18 04:00 98.6 62 26 154/67 (96) 96 03/19/18 04:00 62 03/19/18 02:00 66 03/19/18 00:00 85 31 144/93 (110) 91 03/19/18 00:00 85 03/18/18 22:00 84 03/18/18 21:10 97 Nasal Cannula 3.00 03/18/18 20:00 86 03/18/18 20:00 98.7 86 50 119/70 (86) 97 03/18/18 18:00 92 03/18/18 16:00 95 03/18/18 16:00 98.4 95 43 138/71 (93) 96 03/18/18 15:00 104 60 138/78 (98) 97 03/18/18 14:56 98.4 102 22 131/75 (93) 97 03/18/18 12:22 98.1 91 17 155/64 (94) 94 03/18/18 11:33 3.00 03/18/18 08:24 96 3.00 03/18/18 08:13 86 03/18/18 08:07 98.0 80 19 138/66 (90) 97 I/O 03/18/18 03/18/18 03/18/18 03/19/18 03/19/18 03/19/18 07:00 15:00 23:00 07:00 15:00 23:00 Intake Total 380 ml 480 ml 300 ml Balance 380 ml 480 ml 300 ml Intake Oral 380 ml 480 ml 300 ml # Voids 3 3 Physical Exam GENERAL: Well developed, well nourished. No acute distress. HEENT: Jugular venous pressure is normal. CHEST: Diminished breath sounds diffusely. CARDIAC: Regular rate and rhythm without S3, S4, or murmur. ABDOMEN: Soft, nontender, no hepatosplenomegaly. Bowel sounds present. EXTREMITIES: No clubbing, cyanosis, or edema. Laboratory Laboratory Tests Test 03/18/18 13:30 03/18/18 14:07 03/18/18 21:02 03/19/18 04:09 Blood Gas Puncture Site RT RADIAL Blood Gas Patient Temperature 98.6 Blood Gas HCO3 27 mmol/L Blood Gas Base Excess 3.2 mmol/L Blood Gas Oxygen Saturation 95 % Arterial Blood pH 7.43 Arterial Blood Partial Pressure CO2 42 mmHg Arterial Blood Partial Pressure O2 86 mmHg Arterial Blood Oxygen Content 17.2 Vol % Arterial Blood Carboxyhemoglobin 1.2 % Arterial Blood Methemoglobin 1.1 % Blood Gas Hemoglobin 12.9 G/DL Oxygen Delivery Device NASAL CANNULA Blood Gas Liter Flow 3 L/M Blood Urea Nitrogen 35 MG/DL 33 MG/DL Creatinine 0.99 MG/DL 0.78 MG/DL Random Glucose 354 MG/DL 186 MG/DL Calcium Level 8.9 MG/DL 8.6 MG/DL Sodium Level 136 MEQ/L 139 MEQ/L Potassium Level 4.5 MEQ/L 4.3 MEQ/L Chloride Level 100 MEQ/L 102 MEQ/L Carbon Dioxide Level 29.0 MEQ/L 30.0 MEQ/L Anion Gap 7 MEQ/L 7 MEQ/L Estimat Glomerular Filtration Rate 54 ML/MIN 71 ML/MIN Total Creatine Kinase 114 U/L Creatine Kinase MB 3.2 NG/ML Troponin I LESS THAN 0.02 NG/ML LESS THAN 0.02 NG/ML Thyroid Stimulating Hormone 3rd Gen 1.090 uIU/ML White Blood Count 10.7 TH/MM3 Red Blood Count 4.29 MIL/MM3 Hemoglobin 12.3 GM/DL Hematocrit 37.2 % Mean Corpuscular Volume 86.7 FL Mean Corpuscular Hemoglobin 28.6 PG Mean Corpuscular Hemoglobin Concent 33.0 % Red Cell Distribution Width 15.4 % Platelet Count 154 TH/MM3 Mean Platelet Volume 8.7 FL Neutrophils (%) (Auto) 85.0 % Lymphocytes (%) (Auto) 7.3 % Monocytes (%) (Auto) 7.5 % Eosinophils (%) (Auto) 0.0 % Basophils (%) (Auto) 0.2 % Neutrophils # (Auto) 9.1 TH/MM3 Lymphocytes # (Auto) 0.8 TH/MM3 Monocytes # (Auto) 0.8 TH/MM3 Eosinophils # (Auto) 0.0 TH/MM3 Basophils # (Auto) 0.0 TH/MM3 CBC Comment DIFF FINAL Differential Comment Assessment and Plan Problem List: (1) Paroxysmal atrial fibrillation ICD Codes: I48.0 - Paroxysmal atrial fibrillation Status: Acute Plan: Stable overnight. No further atrial fibrillation. Echo pending. No evidence for ACS. Thromboembolic risk moderately elevated with diabetes, advanced age. REC continue oral Amiodarone, dabigatran continue carvedilol move out of ICU, possible discharge tomorrow if stable (2) Chest pain ICD Codes: R07.9 - Chest pain, unspecified Status: Acute Plan: Stable overnight. No further atypical CP. Cardiac enzymes negative for [place]. Patient reports normal cath 6 years ago. Rec conservative management and work up unless she develops recurrent symptoms. Code Status full code Discussed Condition With patient and daughter Problem Qualifiers (1) Chest pain: Qualified Codes: R07.9 - Chest pain, unspecified Aram Abreu MD Mar 19, 2018 07:19
[2018-03-19] MEDS: INSULIN NovoLIN REGULAR SUPPLEMENTAL SCALE SQ SCH ×4 (08:00→22:15)
[2018-03-19] MEDS: RESP: ALBUTEROL 2.5 MG/IPRATROPIUM 0.5 MG NEB (SCH) NEB ×4 (08:14→20:36)
[2018-03-19] MEDS: LEVOFLOXACIN 500 MG TAB PO SCH (08:46)
[2018-03-19] MEDS: metFORMIN HCL 500 MG TAB PO SCH ×3 (08:46→16:56)
[2018-03-19] MEDS: CARVEDILOL 6.25 MG TAB PO SCH ×2 (08:46→22:05)
[2018-03-19] MEDS: DABIGATRAN ETEXILATE 150 MG CAP PO SCH ×2 (08:46→22:05)
[2018-03-19] MEDS: INSULIN DETEMIR 100 UNITS/ML VIAL SQ SCH ×2 (08:47→22:06)
[2018-03-19] MEDS: guaiFENesin E.R. 600 MG TAB PO SCH ×2 (08:47→22:05)
[2018-03-19] MEDS: methylPREDNISolone SOD SUCC 40 MG/1 ML VIAL IV PUSH SCH ×2 (08:47→22:02)
[2018-03-19] MEDS: BUDESONIDE-FORMOTEROL 80/4.5 MCG INHALER INH SCH ×2 (08:47→22:01)
[2018-03-19] MEDS: DOCUSATE SODIUM 50 MG/SENNA 8.6 MG TAB PO SCH ×2 (08:47→22:05)
[2018-03-19] MEDS: SODIUM CHLORIDE 0.9% FLUSH 10 ML FLUSH IV FLUSH SCH ×2 (08:47→22:02)
[2018-03-19] MEDS: AMIODARONE 200 MG TAB PO SCH ×2 (08:47→22:05)
--- NOTE | 2018-03-19 08:51 | HHI.PR ---
Subjective Remarks F/U COPD. Breathing better denies shortness of breath but with active wheezing on nasal cannula. Discussed with nursing. Objective Vitals Vital Signs Date Time Temp Pulse Resp B/P (MAP) Pulse Ox O2 Delivery O2 Flow Rate FiO2 03/19/18 08:16 98 Nasal Cannula 2.00 03/19/18 06:00 64 03/19/18 04:00 98.6 62 26 154/67 (96) 96 03/19/18 04:00 62 03/19/18 02:00 66 03/19/18 00:00 85 31 144/93 (110) 91 03/19/18 00:00 85 03/18/18 22:00 84 03/18/18 21:10 97 Nasal Cannula 3.00 03/18/18 20:00 86 03/18/18 20:00 98.7 86 50 119/70 (86) 97 03/18/18 18:00 92 03/18/18 16:00 95 03/18/18 16:00 98.4 95 43 138/71 (93) 96 03/18/18 15:00 104 60 138/78 (98) 97 03/18/18 14:56 98.4 102 22 131/75 (93) 97 03/18/18 12:22 98.1 91 17 155/64 (94) 94 03/18/18 11:33 3.00 I/O 03/18/18 03/18/18 03/18/18 03/19/18 03/19/18 03/19/18 07:00 15:00 23:00 07:00 15:00 23:00 Intake Total 380 ml 480 ml 300 ml Balance 380 ml 480 ml 300 ml Intake Oral 380 ml 480 ml 300 ml # Voids 3 3 Result Diagram: 03/19/18 0409 03/19/18 0409 Imaging Last Impressions Chest X-Ray 03/16/18 0906 Signed Impressions: Service Date/Time: Friday, March 16, 2018 09:34 - CONCLUSION: No acute disease. Jair Garcia MD CT Angiography 03/16/18 0000 Signed Impressions: Service Date/Time: Friday, March 16, 2018 17:37 - CONCLUSION: 1. No filling defects to suggest pulmonary embolic disease. No effusions or adenopathy. Diego Slater MD Objective Remarks GENERAL: Pleasant, obese [place] female sitting up eating breakfast. SKIN: Warm and dry. HEENT: AT/NC. Pupils equal and round. MMM. HEART: RRR no m/r/g. LUNGS: Diminished breath sounds with expiratory wheezing and prolonged expiratory phase. ABDOMEN: +BS, soft, NT, ND. EXTREMITIES: No LE edema. Diminished but palpable pedal pulses. NEURO: Awake and alert. Nonfocal. PSYCH: Appropriate mood and affect. Procedures none A/P Problem List: (1) Insulin dependent diabetes mellitus ICD Code: E11.9 - Type 2 diabetes mellitus without complications; Z79.4 - snf (current) use of insulin (2) GERD (gastroesophageal reflux disease) ICD Code: K21.9 - Gastro-esophageal reflux disease without esophagitis (3) COPD exacerbation ICD Code: J44.1 - Chronic obstructive pulmonary disease with (acute) exacerbation Status: Acute Assessment and Plan 82 year old [place] female with COPD, IDDM, tobacco abuse, and history of breast cancer admitted on 03/16 for acute COPD exacerbation. 1. COPD exacerbation - Desatted to 78% on room air in the ED - Maintaining adequate sats on 3 L NC - DuoNeb Q4H scheduled - Decrease SoluMedrol to 40 IV Q12 and plan to change to PO tomorrow - Start on Symbicort and provide Rx on discharge as well as albuterol rescue inhaler - White cell count bumped from 5.9 to 11 likely secondary to steroid demargination but added Levaquin for coverage of exacerbation since severe enough to require hospitalization - Counseled extensively on the need to be compliant with maintenance inhalers and the absolute need to stop smoking 2. Hypoxia - ABG on admission: pH 7.33, PCO2 54, PO2 70, HCO3 28 - Supplemental O2 PRN - D-dimer elevated given hypoxia and h/o breast cancer but CTA negative for embolism - Respiratory walk test since patient anticipated to be discharged tomorrow 3. Insulin dependent DM - SSI per protocol - Blood sugars have been elevated in 200-400 range, likely secondary to steroid use - Change to diabetic diet - Increase Levemir to 35 units BID. Restart metformin 4. Tobacco abuse - Refusing nicotine patch - Ativan PRN withdraw symptoms - Counseled extensively on cessation 5. Fib with RVR. TSH within normal limits. Now in sinus rhythm continue Pradaxa, amiodarone and Coreg follow-up echocardiogram. 6. Coag negative bacteremia in 1 out of 8 bottles likely pseudo-anemia. Continue to monitor DVT prophylaxis: SCDs/teds/Lovenox SQ Discharge Planning Stable for transfer to floor. Possible discharge in the morning Dustin Macias MD Mar 19, 2018 08:51
--- NOTE | 2018-03-19 09:01 | HHI.FF ---
Face to Face Verification Diagnosis: (1) Chest pain (2) Paroxysmal atrial fibrillation (3) COPD exacerbation Home Health Nursing Order: Medical education Signs/symptoms of disease process Diabetic education Oxygen administration education Medication education-adverse effect Nursing assessment with vital signs I have seen patient Wendy Boone on 03/19/18. My clinical findings support the need for the requested home health care services because: Patient has SOB I certify that my clinical findings support that this patient is homebound because: Hx COPD- exertion dyspnea/weakness Dustin Macias MD Mar 19, 2018 09:01
--- NOTE | 2018-03-19 09:01 | HHI.DCPOC ---
Discharge Care Plan Diagnosis: (1) COPD exacerbation (2) Paroxysmal atrial fibrillation Your Health Problems Are: Difficulty with ADL Exercise Tolerance Goals to Promote Your Health * To prevent worsening of your condition and complications * To maintain your health at the optimal level Directions to Meet Your Goals Take your medications as prescribed Follow your dietary instruction Follow activity as directed Keep your appointments as scheduled Take your immunizations and boosters as scheduled If your symptoms worsen call your PCP, if no PCP go to Urgent Care Center or Emergency Room Smoking is Dangerous to Your Health. Avoid second hand smoke Call the 24-hour hour crisis hotline for domestic abuse at Dustin Macias MD Mar 19, 2018 09:01
[2018-03-19] MEDS ORDERED: LEVA500T33 PO (09:07)
[2018-03-19] MEDS ORDERED: PRAD150C PO (09:07)
[2018-03-19] MEDS ORDERED: NEBULIZER1 MI1 (09:07)
[2018-03-19] MEDS ORDERED: CARV6.25 PO (09:07)
[2018-03-19] MEDS ORDERED: AMIO200T PO (09:07)
[2018-03-19] MEDS ORDERED: Budeson-Formot 80-4.5 Mcg Inh INH (09:07)
[2018-03-19] MEDS ORDERED: Albuterol-Ipratropium Neb NEB ×2 (09:07)
[2018-03-19] MEDS ORDERED: PRED20 PO (09:07)
--- NOTE | 2018-03-19 18:52 | ECHRPT ---
Indication: AFIB/AFLUTTER CONCLUSIONS The left ventricular systolic function is normal with an estimated ejection fraction in the range of 55-60%. Wall thickness is measured at the upper limits of normal. Mild mitral valve regurgitation. There is mild tricuspid valve regurgitation. BP: 154 / 67 HR: 62 Rhythm: Sinus MEASUREMENTS (Male / Female) Normal Values Technical Quality:Fair 2D ECHO LV Diastolic Diameter PLAX 4.7 cm 4.2 - 5.9 / 3.9 - 5.3 cm LV Systolic Diameter PLAX 3.7 cm IVS Diastolic Thickness 1.0 cm 0.6 - 1.0 / 0.6 - 0.9 cm LVPW Diastolic Thickness 1.0 cm 0.6 - 1.0 / 0.6 - 0.9 cm LV Relative Wall Thickness 0.4 RV Internal Dim ED PLAX 3.6 cm LVOT Diameter 1.9 cm LA Systolic Diameter LX 4.2 cm 3.0 - 4.0 / 2.7 - 3.8 cm M-MODE Aortic Root Diameter MM 2.9 cm LA Systolic Diameter MM 3.9 cm LA Ao Ratio MM 1.3 AV Cusp Separation MM 1.3 cm DOPPLER AV Peak Velocity 156.0 cm/s AV Peak Gradient 9.7 mmHg LVOT Peak Velocity 94.9 cm/s LVOT Peak Gradient 3.6 mmHg AV Area Cont Eq pk 1.7 cm MV Area PHT 3.0 cm Mitral E Point Velocity 89.8 cm/s Mitral A Point Velocity 91.0 cm/s Mitral E to A Ratio 1.0 LV E' Lateral Velocity 7.0 cm/s Mitral E to LV E' Lateral Ratio 12.8 LV E' Septal Velocity 5.7 cm/s Mitral E to LV E' Septal Ratio 15.9 TR Peak Velocity 270.0 cm/s TR Peak Gradient 29.2 mmHg FINDINGS LEFT VENTRICLE The left ventricular systolic function is normal with an estimated ejection fraction in the range of 55-60%. Wall thickness is measured at the upper limits of normal. Normal left ventricular size. RIGHT VENTRICLE Normal right ventricular size and systolic function. LEFT ATRIUM The left atrial size is mildly dilated. RIGHT ATRIUM The right atrial size is normal. ATRIAL SEPTUM Normal atrial septal thickness without atrial level shunting by limited color doppler interrogation. AORTA The aortic root and proximal ascending aorta are normal in size on limited imaging. MITRAL VALVE Mitral annular calcification is present. Mild mitral valve regurgitation. Mild thickening of the mitral valve leaflets. No mitral valve stenosis. AORTIC VALVE Trileaflet aortic valve. Aortic valve sclerosis is present. No aortic valve regurgitation. TRICUSPID VALVE Structurally normal tricuspid valve. There is mild tricuspid valve regurgitation. The estimated pulmonary arterial pressure is 39 mmHg. PULMONARY VALVE The pulmonary valve is not well visualized. VESSELS The inferior vena cava is normal in size. PERICARDIUM No pericardial effusion. Marcellus Dickson DO (Electronically Signed) Final Date:19 March 2018 18:51
[2018-03-20 00:30] VITALS: BP 128/68; PULSE 80; RESP 18; TEMP 98.1; O2SAT 95
[2018-03-20 00:39] VITALS: O2SAT 95
[2018-03-20 04:00] VITALS: BP 126/67; PULSE 69; RESP 21; TEMP 97; O2SAT 95
--- NOTE | 2018-03-20 07:56 | PD.CARD.PN ---
Subjective Subjective Remarks No further CP. No dizziness, palpitations. Dyspnea improved. Objective Medications Item Value Date Time Carvedilol 6.25 mg 03/18/182099 (Coreg) Q12HR/PO 03/19/182204 Amiodarone HCl 400 mg 03/18/182099 (Cordarone) Q12HR/PO 03/19/182204 Dabigatran 150 mg 03/18/182099 (Pradaxa) BID/PO 03/19/182204 Current Medications Medications (Trade) Dose Ordered Sig/Merlin Route Start Time Stop Time Status Last Admin (NS Flush) 2 ml UNSCH PRN IV FLUSH 03/16/18 11:15 03/17/18 03:21 (NS Flush) 2 ml BID IV FLUSH 03/16/18 21:00 03/19/18 22:02 (Tylenol) 650 mg Q4H PRN PO 03/16/18 11:15 03/17/18 08:13 (Zofran Inj) 4 mg Q6H PRN IVP 03/16/18 11:15 (Narcan Inj) 0.4 mg UNSCH PRN IV PUSH 03/16/18 11:15 (Samantha-Colace) 1 tab BID PO 03/16/18 21:00 03/19/18 22:05 (Milk Of Magnesia Liq) 30 ml Q12H PRN PO 03/16/18 11:15 (Senokot) 17.2 mg Q12H PRN PO 03/16/18 11:15 (Dulcolax Supp) 10 mg DAILY PRN RECTAL 03/16/18 11:15 (Lactulose Liq) 30 ml DAILY PRN PO 03/16/18 11:15 (Duoneb Neb) 1 ampule Q4HR WHILE AWAKE NEB NEB 03/16/18 12:00 03/19/18 20:36 (Duoneb Neb) 1 ampule Q2HR NEB PRN NEB 03/16/18 11:15 03/20/18 00:38 (D50w (Vial) Inj) 50 ml UNSCH PRN IV PUSH 03/16/18 11:30 (Glucagon Inj) 1 mg UNSCH PRN OTHER 03/16/18 11:30 (NovoLIN R SUPPLEMENTAL SCALE) 1 ACHS SLIDING SCALE SQ 03/16/18 12:00 03/19/18 22:15 (Ativan) 0.5 mg Q12H PRN PO 03/16/18 18:30 (Levaquin) 500 mg DAILY PO 03/17/18 09:00 03/23/18 08:59 03/19/18 08:46 (Mucinex Er) 600 mg BID PO 03/17/18 21:00 03/19/18 22:05 (SoluMEDROL INJ) 40 mg Q12HR IV PUSH 03/18/18 21:00 03/19/18 22:02 (Levemir Inj) 35 units BID SQ 03/18/18 21:00 03/19/18 22:06 (Symbicort 80-4.5 Mcg Inh) 1 puff Q12HR INH 03/18/18 21:00 03/19/18 22:01 (Coreg) 6.25 mg Q12HR PO 03/18/18 21:00 03/19/18 22:05 (Cordarone) 400 mg Q12HR PO 03/18/18 21:00 03/19/18 22:05 (Pradaxa) 150 mg BID PO 03/18/18 21:00 03/19/18 22:05 (Glucophage) 1,000 mg BIDPC PO 03/18/18 19:00 03/19/18 16:56 Vital Signs / I&O Vital Signs Date Time Temp Pulse Resp B/P (MAP) Pulse Ox O2 Delivery O2 Flow Rate FiO2 03/20/18 05:50 3.00 03/20/18 04:00 97.0 69 21 126/67 (86) 95 03/20/18 00:39 95 Nasal Cannula 2.00 03/20/18 00:30 98.1 80 18 128/68 (88) 95 03/19/18 21:30 97.6 88 19 131/62 (85) 93 03/19/18 20:37 91 Nasal Cannula 2.00 03/19/18 16:50 95 Nasal Cannula 2.00 03/19/18 15:53 98.1 77 20 126/64 (84) 92 03/19/18 15:20 20 03/19/18 13:00 78 03/19/18 13:00 78 41 87 03/19/18 12:17 72 03/19/18 12:17 72 43 141/64 (89) 91 03/19/18 12:00 81 03/19/18 12:00 98.6 81 36 140/104 (116) 89 03/19/18 10:00 84 03/19/18 09:02 80 44 136/76 (96) 97 03/19/18 09:02 80 03/19/18 09:00 79 45 97 03/19/18 09:00 79 03/19/18 08:16 98 Nasal Cannula 2.00 03/19/18 08:00 78 03/19/18 08:00 98.9 78 52 130/63 (85) I/O 03/19/18 03/19/18 03/19/18 03/20/18 03/20/18 03/20/18 07:00 15:00 23:00 07:00 15:00 23:00 Intake Total 300 ml 550 ml 1035 ml Balance 300 ml 550 ml 1035 ml Intake Oral 300 ml 550 ml 1035 ml # Voids 3 4 3 # Bowel Movements 0 0 Physical Exam GENERAL: Well developed, well nourished. No acute distress. HEENT: Jugular venous pressure is normal. CHEST: Diminished breath sounds diffusely. CARDIAC: Regular rate and rhythm without S3, S4, or murmur. ABDOMEN: Soft, nontender, no hepatosplenomegaly. Bowel sounds present. EXTREMITIES: No clubbing, cyanosis, or edema. Assessment and Plan Problem List: (1) Paroxysmal atrial fibrillation ICD Codes: I48.0 - Paroxysmal atrial fibrillation Status: Acute Plan: Stable overnight. No definite atrial fib though patient not placed on monitor. Echo unremarkable. No evidence for ACS. Thromboembolic risk moderately elevated with diabetes, advanced age. REC continue oral Amiodarone, decrease dose to 200 mg daily continue carvedilol, dabigatran OK to discharge from cardiac standpoint, f/u with a assistive technology specialist in [place] (2) Chest pain ICD Codes: R07.9 - Chest pain, unspecified Status: Acute Plan: Stable overnight. No further atypical CP. Cardiac enzymes negative for GA. Patient reports normal cath 6 years ago. Rec conservative management and work up unless she develops recurrent symptoms. Code Status full code Discussed Condition With patient Problem Qualifiers (1) Chest pain: Qualified Codes: R07.9 - Chest pain, unspecified Aram Abreu MD Mar 20, 2018 07:56
[2018-03-20 08:00] VITALS: BP 150/69; PULSE 75; RESP 16; TEMP 97.6; O2SAT 92
[2018-03-20] MEDS: RESP: ALBUTEROL 2.5 MG/IPRATROPIUM 0.5 MG NEB (SCH) NEB (08:00)
[2018-03-20] MEDS ORDERED: OXYGENDME NAS.CANULA (08:57)
[2018-03-20] MEDS: INSULIN NovoLIN REGULAR SUPPLEMENTAL SCALE SQ SCH ×2 (08:59→12:56)
[2018-03-20] MEDS: metFORMIN HCL 500 MG TAB PO SCH (09:00)
[2018-03-20] MEDS: INSULIN DETEMIR 100 UNITS/ML VIAL SQ SCH (09:00)
[2018-03-20] MEDS: LEVOFLOXACIN 500 MG TAB PO SCH (09:01)
[2018-03-20] MEDS: DABIGATRAN ETEXILATE 150 MG CAP PO SCH (09:01)
[2018-03-20] MEDS: methylPREDNISolone SOD SUCC 40 MG/1 ML VIAL IV PUSH SCH (09:01)
[2018-03-20] MEDS: DOCUSATE SODIUM 50 MG/SENNA 8.6 MG TAB PO SCH (09:01)
[2018-03-20] MEDS: CARVEDILOL 6.25 MG TAB PO SCH (09:01)
[2018-03-20] MEDS: AMIODARONE 200 MG TAB PO SCH (09:01)
[2018-03-20] MEDS: SODIUM CHLORIDE 0.9% FLUSH 10 ML FLUSH IV FLUSH SCH (09:01)
[2018-03-20] MEDS: guaiFENesin E.R. 600 MG TAB PO SCH (09:01)
[2018-03-20] MEDS: BUDESONIDE-FORMOTEROL 80/4.5 MCG INHALER INH SCH (09:03)
--- NOTE | 2018-03-20 10:23 | HHI.DS ---
Discharge Summary Admission Date Mar 16, 2018 at 11:20 am Discharge Date: Mar 20, 2018 Admitting Diagnosis (1) Insulin dependent diabetes mellitus ICD Code: E11.9 - Type 2 diabetes mellitus without complications; Z79.4 - [facility] (current) use of insulin (2) GERD (gastroesophageal reflux disease) ICD Code: K21.9 - Gastro-esophageal reflux disease without esophagitis (3) COPD exacerbation ICD Code: J44.1 - Chronic obstructive pulmonary disease with (acute) exacerbation Diagnosis: Principal Status: Acute Procedures none Brief History - From Admission Patient is a very pleasant 82yo F with PMH of COPD not on home oxygen presents to the ED with c/o sob and cough since yesterday. Said she is a heavy cig smoker and smoke a pack a day. Denies any fever, chest pain, sob, n/v, abdominal pain, focal weakness or numbness. Patient is from [place] and visiting her friend. Says she never been hospitalized for COPD in the past. She is following with her doctors and is taking her medications. Does not have a pulmonology doctor. Denies chest pain or palpitations. No n/v/d/c. No urinary complaints. CBC/BMP: 03/19/18 0409 03/19/18 0409 Significant Findings Laboratory Tests Test 03/18/18 03:30 03/18/18 13:30 03/18/18 14:07 03/18/18 21:02 White Blood Count 13.2 TH/MM3 (4.0-11.0) Neutrophils (%) (Auto) 89.2 % (16.0-70.0) Lymphocytes (%) (Auto) 4.7 % (9.0-44.0) Neutrophils # (Auto) 11.8 TH/MM3 (1.8-7.7) Lymphocytes # (Auto) 0.6 TH/MM3 (1.0-4.8) Blood Urea Nitrogen 37 MG/DL (7-18) 35 MG/DL (7-18) Random Glucose 195 MG/DL (74-106) 354 MG/DL (74-106) Estimat Glomerular Filtration Rate 70 ML/MIN (>89) 54 ML/MIN (>89) Blood Gas HCO3 27 mmol/L (22-26) Blood Gas Base Excess 3.2 mmol/L (-2-2) Arterial Blood pH 7.43 (7.380-7.420) Troponin I LESS THAN 0.02 NG/ML LESS THAN 0.02 NG/ML Test 03/19/18 04:09 Neutrophils (%) (Auto) 85.0 % (16.0-70.0) Lymphocytes (%) (Auto) 7.3 % (9.0-44.0) Neutrophils # (Auto) 9.1 TH/MM3 (1.8-7.7) Lymphocytes # (Auto) 0.8 TH/MM3 (1.0-4.8) Blood Urea Nitrogen 33 MG/DL (7-18) Random Glucose 186 MG/DL (74-106) Estimat Glomerular Filtration Rate 71 ML/MIN (>89) Imaging Last Impressions Chest X-Ray 03/16/18 0906 Signed Impressions: Service Date/Time: Friday, March 16, 2018 09:34 - CONCLUSION: No acute disease. Jair Garcia MD CT Angiography 03/16/18 0000 Signed Impressions: Service Date/Time: Friday, March 16, 2018 17:37 - CONCLUSION: 1. No filling defects to suggest pulmonary embolic disease. No effusions or adenopathy. Diego Slater MD PE at Discharge GENERAL: Pleasant, obese [place] female sitting up eating breakfast. SKIN: Warm and dry. HEENT: AT/NC. Pupils equal and round. MMM. HEART: RRR no m/r/g. LUNGS: Diminished breath sounds with expiratory wheezing and prolonged expiratory phase. ABDOMEN: +BS, soft, NT, ND. EXTREMITIES: No LE edema. Diminished but palpable pedal pulses. NEURO: Awake and alert. Nonfocal. PSYCH: Appropriate mood and affect. Pt update on day of discharge Patient is currently doing well. Sitting in her chair. No acute concerns. No fever or chills. Discussed with patient's daughter who is coming to pick her up today. Hospital Course 82 year old [place] female with COPD, IDDM, tobacco abuse, and history of breast cancer admitted on 03/16 for acute COPD exacerbation. 1. COPD exacerbation - Desatted to 78% on room air in the ED - Maintaining adequate sats on 3 L NC - DuoNeb Q4H scheduled - Decrease SoluMedrol to 40 IV Q12 and plan to change to PO tomorrow - Start on Symbicort and provide Rx on discharge as well as albuterol rescue inhaler - White cell count bumped from 5.9 to 11 likely secondary to steroid demargination but added Levaquin for coverage of exacerbation since severe enough to require hospitalization - Counseled extensively on the need to be compliant with maintenance inhalers and the absolute need to stop smoking 2. Hypoxia - ABG on admission: pH 7.33, PCO2 54, PO2 70, HCO3 28 - Supplemental O2 PRN - D-dimer elevated given hypoxia and h/o breast cancer but CTA negative for embolism - Respiratory walk test since patient anticipated to be discharged tomorrow 3. Insulin dependent DM - SSI per protocol - Blood sugars have been elevated in 200-400 range, likely secondary to steroid use - Change to diabetic diet - Increase Levemir to 35 units BID. Restart metformin 4. Tobacco abuse - Refusing nicotine patch - Ativan PRN withdraw symptoms - Counseled extensively on cessation 5. Fib with RVR. TSH within normal limits. Now in sinus rhythm continue Pradaxa, amiodarone and Coreg follow-up echocardiogram. 6. Coag negative bacteremia in 1 out of 8 bottles likely pseudo-anemia. Continue to monitor DVT prophylaxis: SCDs/teds/Lovenox SQ Pt Condition on Discharge: Good Discharge Disposition: Disch w/ Home Health Serv Discharge Time: > 30 minutes Discharge Instructions DIET: Follow Instructions for: Diabetic Diet Activities you can perform: Regular-No Restrictions Follow up Referrals: Cardiology - 1 Week PCP Follow-up - 2-3 Days Pulmonology - 1 Week New Medications: Nebulizer (Nebulizer) 1 Mis Mis EA .XX DIRECTED for Breathing Treatment, #1 0 Refills Oxygen (O2) (Oxygen (O2)) Device LITER JON.CANULA CONTINUOUS for Prevent Hypoxemia, #2 Oxygen Concentrator Portable Gaseous 2 L/min via Nasal Canula Continuous For 99 months Prednisone (Prednisone) 20 Mg Tab 40 MG PO DAILY for Control Inflammation, #10 TAB 0 Refills Take 40 mg (2 tablets) daily for 5 days Amiodarone (Amiodarone) 200 Mg Tab 400 MG PO Q12HR for Regulate Heart Beat, #120 TAB Carvedilol (Coreg) 6.25 Mg Tab 6.25 MG PO Q12HR for Regulate Heart Beat, #60 TAB Dabigatran (Pradaxa) 150 Mg Cap 150 MG PO BID for Prevent Blood Clot, #60 CAP Levofloxacin (Levaquin) 500 Mg Tablet 500 MG PO DAILY for Infection, #3 TAB [Albuterol-Ipratropium Neb] () 1 AMPULE NEBU 1 AMPULE NEB QID NEB for Breathing Treatment, #120 NEBULE [Albuterol-Ipratropium Neb] () 1 AMPULE NEBU 1 AMPULE NEB Q2HR NEB PRN for sob/wheezing , #120 NEBULE [Budeson-Formot 80-4.5 Mcg Inh] () 60 PUFF AERO 1 PUFF INH Q12HR for Breathing Treatment, #1 PUFF Continued Medications: Insulin Aspart Inj (Novolog Inj) 1,000 Unit/10 Ml Vial 3 UNITS SQ BID for Blood Sugar Management, #1 INJECTION 0 Refills Insulin Detemir Inj (Levemir Inj) 1,000 unit/ 10 ML Vial 30 UNITS SQ BID for Blood Sugar Management, VIAL 0 Refills Do not mix with any other Insulin. Metformin (Metformin) 1,000 Mg Tab 1000 MG PO BIDPC for Blood Sugar Management, #60 TAB 0 Refills Raymond Nina DO Mar 20, 2018 10:23 am
[2018-03-20 12:00] VITALS: BP 175/78; PULSE 72; RESP 16; TEMP 97.6; O2SAT 93
[2018-03-20] MEDS ORDERED: AMIO200T PO (14:46)
[2018-03-20] MEDS ORDERED: LEVA500T33 PO (14:46)
[2018-03-20] MEDS ORDERED: CARV6.25 PO (14:46)
[2018-03-20] MEDS ORDERED: PRED20 PO (14:46)
[2018-03-20] MEDS ORDERED: PRAD150C PO (14:46)
[2018-03-21] MEDS ORDERED: AMIODARONE 200 MG TAB PO SCH (09:00)
== END 2018-03-20 15:16 | disposition home health service (06) | DRG 190 ==
LOC: NEPC 08:59 → NEDA 11:20 → N04A 16:15 → HIMN 03-18 14:50 → N05A 03-19 14:17
PROVIDERS: ADMIT Hospitalist; ATTEND Hospitalist
DX: J44.1 Chronic obstructive pulmonary disease with (acute) exacerbation (principal); J96.01 Acute respiratory failure with hypoxia; R78.81 Bacteremia; I48.91 Unspecified atrial fibrillation; E11.9 Type 2 diabetes mellitus without complications; Z79.4 Long term (current) use of insulin; K21.9 Gastro-esophageal reflux disease without esophagitis; F17.210 Nicotine dependence, cigarettes, uncomplicated; R07.9 Chest pain, unspecified; E66.9 Obesity, unspecified; Z68.35 Body mass index [BMI] 35.0-35.9, adult; Z87.11 Personal history of peptic ulcer disease; Z85.3 Personal history of malignant neoplasm of breast
CPT/HCPCS: 36600; 71045; 71275; 76937; 80048; 80053; 82550; 82552; 82805; 82948; 83605; 83735; 83880; 84443; 84484; 85025; 85379; 85610; 85730; 87040; 87077; 87186; 87205; 87804; 93005; 93306; 94618; 94640; 94664; 96374; J1650; J2920; J2930; Q9967